=== PATIENT | male | born 1980 | race Caucasian/White ===

== ENCOUNTER 2022-03-07 18:00 | Emergency (ER) | payer SELFPAY ==
[2022-03-07] MEDS ORDERED: NA CHLORIDE 0.9% 1,000 ML ONE (18:17)
[2022-03-07 18:28] LABS: Absolute Lymphocytes (CBC) 2.3 K/uL (0.7-4.9); Lymphocytes % 22.9 % (15.3-44.8); MCV 81.7 fL (80-100); RBC Red Blood Cell Count 5.51 M/uL (4.33-5.43)
--- NOTE | 2022-03-07 18:41 | RAD REPORT ---
EXAM DESCRIPTION: RAD - Ankle Left 3 View - 03/07/2022 6:28 pm CLINICAL HISTORY: PAIN COMPARISON: Tib Fib Left dated 03/07/2022 FINDINGS/IMPRESSION: No acute fracture. No malalignment. No significant focal degenerative changes. Accessory ossicle versus remote fracture inferior to the medial malleolus.
--- NOTE | 2022-03-07 18:41 | RAD REPORT ---
EXAM DESCRIPTION: RAD - Tib Fib Left - 03/07/2022 6:28 pm CLINICAL HISTORY: PAIN COMPARISON: No comparisons FINDINGS: No acute fracture. No malalignment. No significant focal degenerative changes. IMPRESSION: No acute osseous abnormality involving the left tibia or fibula.
--- NOTE | 2022-03-07 18:42 | RAD REPORT ---
EXAM DESCRIPTION: RAD - Chest Single View - 03/07/2022 6:28 pm CLINICAL HISTORY: TRAUMA COMPARISON: No comparisons FINDINGS: Lines: None. Lungs: No evidence of edema or pneumonia. Pleural: No significant pleural effusions or pneumothorax. Cardiac: The heart size is within normal limits. Bones: No acute fractures. Other: IMPRESSION: No acute cardiopulmonary disease.
--- NOTE | 2022-03-07 18:42 | RAD REPORT ---
EXAM DESCRIPTION: RAD - Shoulder Right 2 View - 03/07/2022 6:28 pm CLINICAL HISTORY: PAIN COMPARISON: No comparisons FINDINGS/IMPRESSION: No acute fracture. No malalignment. No significant focal degenerative changes.
[2022-03-07 18:44] LABS: Potassium 3.6 mmol/L (3.5-5.1)
--- NOTE | 2022-03-07 18:58 | RAD REPORT ---
EXAM DESCRIPTION: CT - Head C Spine Cap Francisco Ramos - 03/07/2022 6:45 pm CLINICAL HISTORY: Trauma, head and neck injury. Chest, abdomen and pelvis pain. fall COMPARISON: No comparisons TECHNIQUE: CT head without contrast. CT cervical spine without contrast with coronal and sagittal reformatted images. CT chest, abdomen and pelvis with coronal and sagittal reformatted images of the spine. All CT scans are performed using dose optimization technique as appropriate and may include automated exposure control or mA/KV adjustment according to patient size. FINDINGS: CT HEAD WITHOUT CONTRAST: No intracranial hemorrhage, hydrocephalus or extra-axial fluid collection. No acute large vascular te rritory infarct. Mucous retention cysts in the right maxillary sinus. Scalp lacerations are present. No radiopaque for eign bodies. The calvarium is intact. CT CERVICAL SPINE WITHOUT CONTRAST: No fracture or subluxation. The prevertebral soft tissues are normal in thickness. CT CHEST, ABDOMEN, PELVIS: Thorax: Chest Wall: No abnormal mass Lungs: No acute abnormality. Pleura: No effusions or pneumothorax. Areli/Mediastinum: No lymphadenopathy. Aorta/Pulmonary Arteries: Unremarkable Heart: Normal size. Abdomen/Pelvis: Liver: No acute abnormality or suspicious lesions. Biliary: No biliary ductal dilatation. Hepatic steatosis. Stomach: No significant focal abnormality. Duodenum: No significant focal abnormality. Pancreas: No significant abnormality. Spleen: No significant abnormality. Adrenal: No suspicious lesions. Kidney/ureter: No hydronephrosis. No renal calculi. Retroperitoneum: No retroperitoneal adenopathy. Vascular: No aneurysm. Bowel: No significant focal abnormality. Peritoneum: No ascites or free air. Bladder: Grossly unremarkable. Reproductive: No adnexal masses. Bones: No acute fracture. Other: n/a IMPRESSION: 1. Scalp laceration but no acute intracranial abnormality or skull fracture. 2. No cervical spine fracture or malalignment. 3. No evidence of significant trauma to the chest, abdomen, or pelvis.
[2022-03-07] MEDS ORDERED: LIDOCAINE 1% W/EPI 1:100,000 MDV 20 ML VIAL ONE (19:41)
--- NOTE | 2022-03-07 20:04 | EDPHYS ---
Physician Documentation [facility] Name: Justino Guo Age: 41 yrs Sex: Male : 1980 Arrival Date: 03/07/2022 Time: 18:01 Bed 8 Private MD: ED Physician Feroz Gauthier HPI: 03/07 18:19 This 41 yrs old Male presents to ER via EMS with complaints of Closed Head ms3 Injury-Adult, Fall Injury, Blunt Trauma. 18:19 Details of fall: The patient fell from a height, 20-30ft on a piece of equipment. ms3 Onset: The symptoms/episode began/occurred just prior to arrival. Associated injuries: The patient sustained injury to the head, laceration, pain, injury to the chest, Left perales and ankle, abrasion, contusion, painful injury. Severity of symptoms: At their worst the symptoms were severe, in the emergency department the symptoms are unchanged. Patient states he dropped a tool while on a machine and placed a ladder on the platform below when the platform gave out causing him to fall.. Historical: - Allergies: 18:29 No Known Allergies; kr3 - Home Meds: 18:29 None [Active]; kr3 - PSHx: 18:29 Vasectomy; kr3 - Immunization history:: Adult Immunizations up to date. - Social history:: Smoking status: Patient denies any tobacco usage or history of. - Immunization history: Last tetanus immunization: unknown. ROS: 18:19 Constitutional: Negative for fever, and chills. Neck: Negative for injury, pain, and ms3 swelling, Cardiovascular: Negative for chest pain, and palpitations. Respiratory: Negative for shortness of breath, cough, wheezing, and pleuritic chest pain, Abdomen/GI: Negative for abdominal pain, nausea, vomiting, diarrhea, and constipation, MS/Extremity: Negative for injury and deformity. 18:19 Skin: Positive for ecchymosis, laceration(s). 18:19 All other systems are negative. Exam: 18:19 Constitutional: This is a well developed, well nourished patient who is awake, alert, ms3 and in no acute distress. 18:19 Eyes: Pupils equal round and reactive to light, extra-ocular motions intact. Lids and lashes normal. Conjunctiva and sclera are non-icteric and not injected. Periorbital areas with no swelling, redness, or edema. Neck: Trachea midline, no cervical lymphadenopathy. Supple, full range of motion without nuchal rigidity, or vertebral point tenderness. No Meningismus. Cardiovascular: Regular rate and rhythm with a normal S1 and S2. No gallops, murmurs, or rubs. Normal PMI, no JVD. No pulse deficits. Respiratory: Lungs have equal breath sounds bilaterally, clear to auscultation and percussion. No rales, rhonchi or wheezes noted. No increased work of breathing, no retractions or nasal flaring. Psych: Awake, alert, with orientation to person, place and time. Behavior, mood, and affect are within normal limits. 18:19 Head/face: Noted is a laceration(s), 9 cm(s), of the top of head. 18:19 Chest/axilla: Inspection: normal, Palpation: tenderness, that is moderate, of the xiphoid area. 18:19 Abdomen/GI: Inspection: abdomen appears normal, Bowel sounds: normal, Palpation: moderate abdominal tenderness, in the right upper quadrant and left upper quadrant. Vital Signs: 18:27 BP 156 / 96; Pulse 91; Resp 17; Temp 98.0; Pulse Ox 97% on R/A; kr3 18:55 BP 156 / 96; Pulse 91; Resp 18; Pulse Ox 97% on R/A; kr3 [place] Coma Score: 19:00 Eye Response: spontaneous(4). Verbal Response: oriented(5). Motor Response: obeys ke1 commands(6). Total: 15. Trauma Score (Adult): 19:00 Eye Response: spontaneous(1); Verbal Response: oriented(1); Motor Response: obeys ke1 commands(2); Systolic BP: > 89 mm Hg(4); Respiratory Rate: 10 to 29 per min(4); Aaron Score: 15; Trauma Score: 12 Laceration: 20:20 Wound Repair of 9cm ( 3.5in ) subcutaneous laceration to top of head. Irregularly ms3 shaped.. Distal neuro/vascular/tendon intact. Anesthesia: Local anesthetic administered with 7 mls of 1% lidocaine w/ Epi. Wound prep: Wound irrigation with saline by tn, Wound explored moderately, Copious irrigation. Skin closed with 10 1-0 Heather using simple sutures and sterile technique. Patient tolerated well. MDM: 18:01 Patient medically screened. ms3 18:19 Differential diagnosis: abrasion, closed head injury, contusion, fracture, laceration, ms3 multiple trauma, sprain, strain. 20:20 Data reviewed: vital signs, nurses notes, lab test result(s), radiologic studies, and ms3 as a result, I will discharge patient. Counseling: I had a detailed discussion with the patient and/or guardian regarding: the historical points, exam findings, and any diagnostic results supporting the discharge/admit diagnosis, lab results, radiology results, the need for outpatient follow up, to return to the emergency department if symptoms worsen or persist or if there are any questions or concerns that arise at home. ED course: On re-evaluation patient is improved, A/O x4, nad, non-toxic, speaking full sentences. Discussed suturing left groin laceration and patient declines. 03/07 18:03 Order name: Basic Metabolic Panel; Complete Time: 19:05 ms3 03/07 18:03 Order name: CBC with Diff; Complete Time: 19:05 ms3 03/07 18:03 Order name: Type And Screen; Complete Time: 20:00 ms3 03/07 18:03 Order name: CT Traumagram (Head C Spine CAP W Con); Complete Time: 19:05 ms3 03/07 18:56 Order name: CREATININE WHOLE BLOOD; Complete Time: 19:05 EDMS 03/07 19:34 Order name: ABO/RH no charge; Complete Time: 20:00 EDMS 03/07 18:03 Order name: XRAY Chest (1 view); Complete Time: 19:05 ms3 03/07 18:04 Order name: Shoulder Right (2 View) XRAY; Complete Time: 19:05 ms3 03/07 18:04 Order name: Tib Fib Left XRAY; Complete Time: 19:05 ms3 03/07 18:04 Order name: Ankle Left 3 View XRAY; Complete Time: 19:05 ms3 03/07 18:03 Order name: Labs collected and sent; Complete Time: 18:08 ms3 Administered Medications: 18:50 Drug: NS 0.9% 1000 ml Route: IV; Rate: 1000 ml; Site: right antecubital; kr3 20:35 Follow up: IV Status: Completed infusion ke1 19:48 Drug: Lidocaine-Epinephrine -1%: (1:100,000) 20 ml {Note: by Dr gauthier.} Volume: 20 ml; ke1 Route: Infiltration; 20:06 Drug: HYDROcodone-acetaminophen 5 mg-325 mg 1 tabs Route: PO; ke1 20:34 Follow up: Response: No adverse reaction ke1 20:06 Drug: ADAcel 0.5 ml {[employer]: [employer]. Exp: 11/11/2023. Lot #: [id number]. } ke1 Route: IM; Site: left deltoid; 20:31 Follow up: Response: No adverse reaction ke1 Disposition Summary: 03/07/22 20:03 Discharge Ordered Location: Home ms3 Condition: Stable ms3 Diagnosis - Laceration without foreign body of scalp ms3 - Groin laceration ms3 - 30 foot fall ms3 Followup: ms3 - With: Amrik Mohr DO - When: 2 - 3 days - Reason: Re-evaluation by your physician Discharge Instructions: - Discharge Summary Sheet ms3 - Laceration Care, Adult ms3 Forms: - Medication Reconciliation Form ms3 - Thank You Letter ms3 - Work release form ms3 - Antibiotic Education ms3 - Prescription Opioid Use ms3 Prescriptions: - Tylenol-Codeine #3 300 mg-30 mg Oral - take 1 tablet by ORAL route every 6 hours; 12 tablet; Refills: 0, Product ms3 Selection Permitted Signatures: Dispatcher [employer] EDLele Vela MD MD rn Lewis, Lynsay, RN RN ll1 Sims, Marcus, DO DO ms3 Zaheer Porter RN RN ke1 Edna Dao RN RN kr3 Corrections: (The following items were deleted from the chart) 18:31 18:29 PSHx: None; kr3 kr3
--- NOTE | 2022-03-07 20:04 | ER ---
Nurse's Notes [facility] Name: Justino Guo Age: 41 yrs Sex: Male : 1980 Arrival Date: 03/07/2022 Time: 18:01 Bed 8 Private MD: Diagnosis: Laceration without foreign body of scalp;Groin laceration;30 foot fall Presentation: 03/07 18:00 Care prior to arrival: c-collar. Trauma event details: Injury occurred in the [address] 18:03 Chief complaint: EMS states: patient was up and walking when they arrived on scene, neg kr3 LOC, bystanders stated he hit many pipes on the way down. fall was approximately 25 ft. 18:03 Method Of Arrival: EMS kr3 18:27 Coronavirus screen: Vaccine status: Patient reports receiving the 2nd dose of the covid kr3 vaccine. Client denies travel out of the [place] in the last 14 days. Ebola Screen: Patient denies travel to an Ebola-affected area in the 21 days before illness onset. Initial Sepsis Screen: Does the patient meet any 2 criteria? No. Patient's initial sepsis screen is negative. Does the patient have a suspected source of infection? Yes: Skin breakdown/wound. 18:29 Risk Assessment: Do you want to hurt yourself or someone else? Patient reports no kr3 desire to harm self or others. Onset of symptoms was March 07, 2022. 18:29 Acuity: YASSINE 2 kr3 19:00 Mechanism of Injury: Fall approximately 25 feet. ke1 Triage Assessment: 18:31 General: Appears uncomfortable, Behavior is calm, cooperative, appropriate for age. kr3 Musculoskeletal: Reports pain in sternum, left ankle, buttock, head, right shoulder. Trauma Activation: Alert Physician: ED Physician; Name: Dr. Gauthier; Notified At: ; Arrived At: Physician: General Surgeon; Name: ; Notified At: ; Arrived At: Physician: Radiology; Name: ; Notified At: ; Arrived At: Physician: Respiratory; Name: ; Notified At: ; Arrived At: Physician: Lab; Name: ; Notified At: ; Arrived At: Historical: - Allergies: 18:29 No Known Allergies; kr3 - Home Meds: 18:29 None [Active]; kr3 - PSHx: 18:29 Vasectomy; kr3 - Immunization history:: Adult Immunizations up to date. - Social history:: Smoking status: Patient denies any tobacco usage or history of. - Immunization history: Last tetanus immunization: unknown. Screenin:00 Abuse screen: Denies threats or abuse. Nutritional screening: No deficits noted. ke1 Tuberculosis screening: No symptoms or risk factors identified. Fall Risk Fall in past 12 months (25 points). No secondary diagnosis (0 pts). IV access (20 points). Ambulatory Aid- None/Bed Rest/Nurse Assist (0 pts). Gait- Normal/Bed Rest/Wheelchair (0 pts) Mental Status- Oriented to own ability (0 pts). Total Pool Fall Scale indicates. Primary Survey: 18:00 Exposure/Environment: All clothing and personal items were removed. Forensic evidence ll1 collection is not deemed to be indicated at this time. Items placed in patient belonging bag. A warming method has been applied: A warm blanket has been provided to the patient. 18:22 NO uncontrolled hemorrhage observed. A: The client is awake and alert. The airway is ll1 patent. The client is alert. Breathing/Chest: Spontaneous respiratory effort, equal unlabored respirations, breath sounds clear bilaterally, regular pattern, symmetrical chest rise and fall. Respiratory effort: spontaneous, unlabored. Circulation: No external hemorrhage present. Regular and strong central pulse, skin warm/dry/normal color. Pulses: palpable right radial artery, right dorsalis pedis artery, left radial artery and left dorsalis pedis artery. Disability Client is alert. 19:00 Reassessment Breathing: Respiratory effort Spontaneous Breath sounds Clear Respiratory ke1 pattern Regular Chest inspection Symmetrical. Secondary Survey: 18:01 HEENT: Head Other abrasion noted to forehead. Musculoskeletal: Circulation, motion, and ll1 sensation intact. Capillary refill < 3 seconds, Reports pain in L ankle. Injury Description: Laceration sustained to perineum fall, approximate 25 foot fall. Vital Signs: 18:27 BP 156 / 96; Pulse 91; Resp 17; Temp 98.0; Pulse Ox 97% on R/A; kr3 18:55 BP 156 / 96; Pulse 91; Resp 18; Pulse Ox 97% on R/A; kr3 [place] Coma Score: 19:00 Eye Response: spontaneous(4). Verbal Response: oriented(5). Motor Response: obeys ke1 commands(6). Total: 15. Trauma Score (Adult): 19:00 Eye Response: spontaneous(1); Verbal Response: oriented(1); Motor Response: obeys ke1 commands(2); Systolic BP: > 89 mm Hg(4); Respiratory Rate: 10 to 29 per min(4); Aaron Score: 15; Trauma Score: 12 ED Course: 18:01 Patient arrived in ED. ms3 18:01 Arm band placed on Patient placed in an exam room, on a stretcher. kr3 18:03 Edna Dao, FLORA is Primary Nurse. kr3 18:08 Feroz Gauthier DO is Attending Physician. ms3 18:29 Triage completed. kr3 18:30 XRAY Chest (1 view) In Process Unspecified. EDMS 18:30 Shoulder Right (2 View) XRAY In Process Unspecified. EDMS 18:30 Tib Fib Left XRAY In Process Unspecified. EDMS 18:30 Ankle Left 3 View XRAY In Process Unspecified. EDMS 18:33 Inserted saline lock: 22 gauge in right antecubital area, using aseptic technique. kr3 Blood collected. 18:47 CT Traumagram (Head C Spine CAP W Con) In Process Unspecified. EDMS 19:00 Bed in low position. Call light in reach. ke1 19:00 No provider procedures requiring assistance completed. ke1 19:00 Patient maintains SpO2 saturation greater than 95% on room air. ke1 19:00 Thermoregulation: warm blanket given to patient. ke1 20:02 Amrik Mohr DO is Referral Physician. ms3 20:30 IV discontinued, intact, bleeding controlled, No redness/swelling at site. Pressure ll1 dressing applied. Administered Medications: 18:50 Drug: NS 0.9% 1000 ml Route: IV; Rate: 1000 ml; Site: right antecubital; kr3 20:35 Follow up: IV Status: Completed infusion ke1 19:48 Drug: Lidocaine-Epinephrine -1%: (1:100,000) 20 ml {Note: by Dr gauthier.} Volume: 20 ml; ke1 Route: Infiltration; 20:06 Drug: HYDROcodone-acetaminophen 5 mg-325 mg 1 tabs Route: PO; ke1 20:34 Follow up: Response: No adverse reaction ke1 20:06 Drug: ADAcel 0.5 ml {[employer]: [employer]. Exp: 11/11/2023. Lot #: [id number]. } ke1 Route: IM; Site: left deltoid; 20:31 Follow up: Response: No adverse reaction ke1 Medication: 20:30 Vaccine Information Statement (VIS) provided today. Questions and/or concerns ke1 addressed. VIS edition date: March 07, 2022. Intake: 18:30 PO: 100ml; Total: 100ml. ll1 Output: 18:30 Urine: 100ml; Total: 100ml. ll1 Outcome: 20:03 Discharge ordered by . ms3 20:31 Discharged to home ambulatory. ke1 20:31 Condition: good 20:31 Discharge instructions given to patient. 20:35 Patient left the ED. ke1 Signatures: Dispatcher [employer] EDMS Ryan Rivero RN RN ll1 Feroz Gauthier DO DO ms3 Zaheer Porter RN RN ke1 Edna Dao RN RN kr3 Corrections: (The following items were deleted from the chart) 18:31 18:29 PSHx: None; kr3 kr3 20:33 20:27 ADAcel 0.5 ml IM in left deltoid [employer]: [employer] Lot: [id number] Exp: ke1 11/11/2023 ke1 20:34 20:27 HYDROcodone-acetaminophen 5 mg-325 mg 1 tabs PO ke1 ke1
[2022-03-07] MEDS ORDERED: TETANUS & DIPHTHERIA TOX,ADULT 0.5 ML VIAL ONE (20:20)
[2022-03-07] MEDS ORDERED: HYDROCODONE/APAP 5/325 MG TAB ONE (20:20)
[2022-03-07 21:04] VITALS: BP 156/96; TEMP 98; O2SAT 97
== END 2022-03-07 20:35 | disposition home or self-care (01) ==
LOC: ER 18:00
PROC: 0JQ00ZZ Repair Scalp Subcutaneous Tissue and Fascia, Open Approach (ICD-10-PCS; principal; 2022-03-07)
DX: S01.01XA Laceration without foreign body of scalp, initial encounter (principal); S31.119A Laceration without foreign body of abdominal wall, unspecified quadrant without penetration into peritoneal cavity, initial encounter; W17.89XA Other fall from one level to another, initial encounter; Z23 Encounter for immunization
CPT/HCPCS: 36415; 70450; 71045; 71260; 72125; 74177; 80048; 82565; 85025; 86850; 86900; 86901; 90714; J7030; Q9967